=== PATIENT | male | born 1965 | race African-American/Black ===

== ENCOUNTER 2017-03-11 09:42 | Emergency (ER) | payer OTHER ==
[~2017-03-11] VITALS: Ht 182.8 cm; Wt 97.5 kg
[~2017-03-11 09:42] MED LIST: ALL-IN-ONE1 TAB PO; ASPIRIN ADULT L81 M3 PO; ASPIRIN81 M1 PO; AUGMENTIN 875 M1 TAB PO; B-1100 MG PO; CATAFLAM50 MG PO; CLARITIN10 MG PO; FLEXERIL5 MG PO; FOLIC ACID1 MG PO; Fioricet 325 MG1 TAB PO; HYDROCODONE BIT1 T11 PO; MOTRIN800 MG PO; MULTI VITAMINS1 TAB PO; MULTIPLE VITAMI1 TAB PO; NATURE'S BLEND F1 MG PO; NKHM; Orphenadrine C100 MG PO; PREDNISONE20 M1 PO; PREDNISONE20 MG PO; ROBAXIN750 MG PO; TESSALON PERLE100 M1 PO; TYLENOL W/CODEI1 TA2 PO; TYLENOL WITH CO1 TAB PO; TYLENOL325 M2 PO; VICODIN 5/500 505 MG PO; WYMOX500 MG PO; ZITHROMAX Z PA250 MG PO; ZOLOFT100 MG PO
[2017-03-11] MEDS ORDERED: MEDROL DOSEPAK4 MG PO (10:01)
[2017-03-11] MEDS ORDERED: PEPCID20 MG PO (10:01)
== END 2017-03-11 10:50 | disposition home or self-care (01) ==
LOC: ED 09:42
DX: L23.9 Allergic contact dermatitis, unspecified cause (principal); M47.896 Other spondylosis, lumbar region

== ENCOUNTER → 2017-04-27 | Outpatient (CLI) | payer OTHER ==
[~2017-04-27] MED LIST changes: +MEDROL DOSEPAK4 MG PO; +PEPCID20 MG PO
== END | disposition home or self-care (01) ==
LOC: US 10:13
DX: M54.5 Low back pain (principal)

== ENCOUNTER 2017-07-08 18:28 | Emergency (ER) | payer OTHER ==
[~2017-07-08] VITALS: Ht 182.8 cm; Wt 97.5 kg
[2017-07-08 19:08] LABS: BASO % 0.4 % (0.0-1.0); EOS # 0.2 10*3/uL (0.0-0.4); HEMATOCRIT 41.6 % (42.0-52.0); HEMOGLOBIN 14.3 g/dl (14.0-18.0); LYMPH # 1.7 10*3/uL (1.3-4.4); LYMPH % 33.1 % (27.0-41.0); MEAN CELL VOLUME 88.9 fl (80.0-94.0); MEAN CORPUSCULAR HGB 30.6 pg (27.0-31.0); MEAN CORPUSCULAR HGB CONC 34.4 g/dl (33.0-37.0); MONO # 0.5 10*3/uL (0.1-1.0); MONO % 9.9 % (3.0-9.0); NEUT # 2.6 10*3/uL (2.3-7.9); PLATELET COUNT AUTOMATED 200 10*3/uL (130-400); RED BLOOD COUNT 4.68 10*6/uL (4.50-5.90); RED CELL DISTRI WIDTH 12.4 % (0-14.5)
[2017-07-08 19:23] LABS: ALKALINE PHOSPHATASE 53 U/L (45-117); BUN 12 mg/dl (7-24); CHLORIDE 105 mmol/L (98-107); POTASSIUM 3.5 mmol/L (3.5-5.1); SGOT/AST 31 IU/L (3-35); SGPT/ALT 33 U/L (12-78); SODIUM 142 mmol/L (136-145); TOTAL PROTEIN 7.3 gm/dL (6.4-8.2)
[2017-07-08] MEDS ORDERED: ZOFRAN ODT4 MG SL (19:27)
== END 2017-07-08 19:28 | disposition home or self-care (01) ==
LOC: ED 18:28
PROVIDERS: Registered Nurse
DX: B34.9 Viral infection, unspecified (principal)

== ENCOUNTER 2017-09-10 18:49 | Emergency (ER) | payer OTHER ==
[~2017-09-10] VITALS: Ht 182.8 cm; Wt 97.5 kg
[~2017-09-10 18:49] MED LIST changes: +ZOFRAN ODT4 MG SL
[2017-09-10 19:34] LABS: BILIRUBIN NEGATIVE (NEGATIVE); BLOOD NEGATIVE (NEGATIVE); CLARITY CLEAR (CLEAR); COLOR YELLOW (YELLOW); GLUCOSE NEGATIVE (NEGATIVE); KETONE NEGATIVE (NEGATIVE); LEUKO ESTERASE NEGATIVE (NEGATIVE); NITRITE NEGATIVE (NEGATIVE); PH 5.5 (5.0-9.0); SPECIFIC GRAVITY 1.025 (1.005-1.030); UROBILINOGEN 0.2 E.U./dl (0.2-1.0)
[2017-09-10 19:50] LABS: BACTERIA TRACE; MUCOUS 1+; RBC 0-2 rbc/hpf (0-2)
== END 2017-09-10 20:16 | disposition home or self-care (01) ==
LOC: ED 18:49
PROVIDERS: Physician Assistant
DX: Z20.2 Contact with and (suspected) exposure to infections with a predominantly sexual mode of transmission (principal); R36.9 Urethral discharge, unspecified; Z79.899 Other long term (current) drug therapy

== ENCOUNTER 2018-02-20 08:01 | Inpatient (IN) | payer OTHER ==
[~2018-02-20] VITALS: Ht 182.8 cm; Wt 94.9 kg
--- NOTE | ~2018-02-20 | EKG ---
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
--- NOTE | ~2018-02-20 | EKG ---
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
[2018-02-20 08:03] VITALS: BP 121/89
[2018-02-20 08:19] LABS: BASO % 0.2 % (0.0-1.0); EOS # 0.4 10*3/uL (0.0-0.4); EOS % 6.3 % (1.0-4.0); HEMATOCRIT 45.1 % (42.0-52.0); HEMOGLOBIN 15.5 g/dl (14.0-18.0); LYMPH # 1.3 10*3/uL (1.3-4.4); LYMPH % 19.1 % (27.0-41.0); MEAN CELL VOLUME 87.4 fl (80.0-94.0); MEAN CORPUSCULAR HGB CONC 34.4 g/dl (33.0-37.0); MEAN PLATELET VOLUME 9.1 fl (9.6-12.3); MONO # 0.5 10*3/uL (0.1-1.0); MONO % 8.1 % (3.0-9.0); NEUT # 4.3 10*3/uL (2.3-7.9); PLATELET COUNT AUTOMATED 211 10*3/uL (130-400); RED BLOOD COUNT 5.16 10*6/uL (4.50-5.90); WHITE BLOOD COUNT 6.5 10*3/uL (4.8-10.8)
[2018-02-20 08:28] LABS: ACT PARTIAL THROMBO TIME 24.4 SECONDS (20.8-31.5); INTERNATIONAL NORM RATIO 0.9 (2.0-3.5)
[2018-02-20 08:36] LABS: ALBUMIN 3.9 gm/dl (3.1-4.5); ALKALINE PHOSPHATASE 59 U/L (45-117); BUN 15 mg/dl (7-24); CHLORIDE 107 mmol/L (98-107); CREATININE 0.96 mg/dL (0.70-1.30); POTASSIUM 3.9 mmol/L (3.5-5.1); SGOT/AST 28 IU/L (3-35); SGPT/ALT 34 U/L (12-78); SODIUM 139 mmol/L (136-145); TOTAL PROTEIN 7.4 gm/dL (6.4-8.2)
[2018-02-20 08:38] LABS: TROPONIN I < 0.015 ng/ml (<0.045)
[2018-02-20 08:57] VITALS: BP 119/82
[2018-02-20 09:30] VITALS: BP 123/80
[2018-02-20 12:00] VITALS: BP 132/73
== END 2018-02-20 14:51 | disposition left against medical advice (07) | DRG 392 ==
LOC: ED 08:01 → EDHOLD 08:55 → 4E 09:18
PROVIDERS: Emergency Medicine
DX: K21.9 Gastro-esophageal reflux disease without esophagitis (principal); D72.1 Eosinophilia; K92.1 Melena; R00.1 Bradycardia, unspecified; R73.9 Hyperglycemia, unspecified; D72.810 Lymphocytopenia; M47.896 Other spondylosis, lumbar region; R19.7 Diarrhea, unspecified; E80.6 Other disorders of bilirubin metabolism; E66.3 Overweight; M47.816 Spondylosis without myelopathy or radiculopathy, lumbar region; Z53.21 Procedure and treatment not carried out due to patient leaving prior to being seen by health care provider; R07.89 Other chest pain; Z82.49 Family history of ischemic heart disease and other diseases of the circulatory system; Z79.899 Other long term (current) drug therapy; Z83.3 Family history of diabetes mellitus; Z83.6 Family history of other diseases of the respiratory system; Z84.89 Family history of other specified conditions; Z68.28 Body mass index [BMI] 28.0-28.9, adult

== ENCOUNTER 2018-03-13 16:42 | Emergency (ER) | payer OTHER ==
[~2018-03-13] VITALS: Ht 182.8 cm; Wt 97.5 kg
[2018-03-13 17:26] LABS: BILIRUBIN NEGATIVE (NEGATIVE); BLOOD NEGATIVE (NEGATIVE); CLARITY CLEAR (CLEAR); COLOR YELLOW (YELLOW); GLUCOSE NEGATIVE (NEGATIVE); KETONE NEGATIVE (NEGATIVE); LEUKO ESTERASE NEGATIVE (NEGATIVE); NITRITE NEGATIVE (NEGATIVE); PH 6.5 (5.0-9.0)
[2018-03-13 17:32] LABS: BACTERIA 1+; EPITHELIAL CELLS 0-2; MUCOUS TRACE; RBC 0-2 rbc/hpf (0-2); WBC 0-2 wbc/hpf (0-5)
[2018-03-13] MEDS ORDERED: ROBAXIN500 M1 PO (17:39)
[2018-03-13] MEDS ORDERED: ANAPROX DS550 MG PO (17:39)
== END 2018-03-13 19:21 | disposition left against medical advice (07) ==
LOC: ED 16:42
PROVIDERS: Physician Assistant
DX: M54.5 Low back pain (principal); M54.6 Pain in thoracic spine

== ENCOUNTER 2018-04-08 07:00 | Emergency (ER) | payer OTHER ==
[~2018-04-08] VITALS: Ht 182.8 cm; Wt 97.1 kg
[~2018-04-08 07:00] MED LIST changes: +ANAPROX DS550 MG PO; +ROBAXIN500 M1 PO
[2018-04-08 07:34] LABS: BASO % 0.4 % (0.0-1.0); EOS # 0.3 10*3/uL (0.0-0.4); EOS % 6.2 % (1.0-4.0); HEMATOCRIT 43.7 % (42.0-52.0); HEMOGLOBIN 14.8 g/dl (14.0-18.0); LYMPH # 1.5 10*3/uL (1.3-4.4); LYMPH % 31.3 % (27.0-41.0); MEAN CELL VOLUME 88.1 fl (80.0-94.0); MEAN CORPUSCULAR HGB 29.8 pg (27.0-31.0); MEAN CORPUSCULAR HGB CONC 33.9 g/dl (33.0-37.0); MEAN PLATELET VOLUME 9.3 fl (9.6-12.3); MONO # 0.4 10*3/uL (0.1-1.0); MONO % 8.3 % (3.0-9.0); NEUT # 2.5 10*3/uL (2.3-7.9); NEUT % 53.4 % (47.0-73.0); PLATELET COUNT AUTOMATED 188 10*3/uL (130-400); RED BLOOD COUNT 4.96 10*6/uL (4.50-5.90); RED CELL DISTRI WIDTH 12.4 % (0-14.5); WHITE BLOOD COUNT 4.7 10*3/uL (4.8-10.8)
[2018-04-08 07:43] LABS: ACT PARTIAL THROMBO TIME 23.9 SECONDS (20.8-31.5)
[2018-04-08 07:49] LABS: ALBUMIN 3.8 gm/dl (3.1-4.5); ALKALINE PHOSPHATASE 48 U/L (45-117); BUN 9 mg/dl (7-24); CHLORIDE 106 mmol/L (98-107); CREATININE 0.86 mg/dL (0.70-1.30); POTASSIUM 3.6 mmol/L (3.5-5.1); SGOT/AST 37 IU/L (3-35); SGPT/ALT 43 U/L (12-78); SODIUM 140 mmol/L (136-145); TOTAL PROTEIN 7.4 gm/dL (6.4-8.2)
[2018-06-01] MEDS ORDERED: KEFLEX500 M1 PO (09:49)
[2018-06-01] MEDS ORDERED: NAPROSYN500 MG PO (09:49)
[2018-06-01] MEDS ORDERED: ZOFRAN4 MG PO (09:49)
[2018-06-01] MEDS ORDERED: SEPTDS PO (09:49)
== END 2018-04-08 11:49 | disposition home or self-care (01) ==
LOC: ED 07:00
PROVIDERS: Emergency Medicine
DX: K92.2 Gastrointestinal hemorrhage, unspecified (principal); M47.896 Other spondylosis, lumbar region

== ENCOUNTER → 2018-06-05 | Day surgery (SDC) | payer OTHER ==
[~2018-06-05] VITALS: Ht 185.9 cm; Wt 90.7 kg
[~2018-06-05] MED LIST changes: +KEFLEX500 M1 PO; +NAPROSYN500 MG PO; +SEPTDS PO; +ZOFRAN4 MG PO
--- NOTE | ~2018-06-05 | O ---
[place], [place] OPERATIVE NOTE [facility]: [id number] UNIT #: [id number] ROOM: DOCTOR: ALKESHA PÉREZ MD BIRTHDATE: [birth year] DOS: 06/05/2018 GASTROENDOSCOPIC REPORT IDENTIFICATION: This is a 52-year-old patient who is presented with dyspepsia as well as rectal bleed intermittently. The patient with symptomatology of this reflux as well. Contributing factors are chewing tobacco as well as use of naproxen 500 mg b.i.d. ALLERGIES: To no known medications. FAMILY HISTORY: Noncontributory. PAST SURGICAL HISTORY: Unremarkable. PAST MEDICAL HISTORY: Otherwise nil. He is only complaining of unintentional weight loss of 10 pounds and as well he is a caffeine consumer. SOCIAL HISTORY: Chewing tobacco and social alcohol consumer. PROCEDURE: Today's procedure part of investigation is panendoscopy and colonoscopy. PREMEDICATION: Propofol. SCOPE: Olympus forward-viewing gastroscope Q10 video. REPORT: After putting the patient in left lateral position and application of lubricant to the scope, the scope was introduced, thereafter under direct visualization advanced through the length of esophagus without difficulty. Distal esophagitis secondary to reflux was identified. A small hiatal hernia of 1.5 cm was noticed. Gastritis was seen. Antral biopsy was obtained for H. pylori. Duodenal bulb, second and third part carefully examined. Mild duodenitis was seen. Scope was withdrawn back. GI reflexion of the scope reveals cardia to be benign. Air was suctioned out. Photographic series obtained. The patient was extubated, tolerated the procedure well. IMPRESSION: 1. Gastritis. 2. A small hiatal hernia. 3. Distal esophagitis secondary to reflux. PLAN: Omeprazole 40 mg one daily. The patient was advised to abstain from chewing tobacco and abstain from naproxen intake routinely. Antireflux with elevation of the head of the bed 6 inch all time. Gaviscon as antacid of choice. Abstaining from excessive caffeinated beverages as well as alcohol. PLAN AND DISCUSSION: I am going to proceed with colonoscopy for rectal bleed as well today. [place], [place] OPERATIVE NOTE NAME: BOBBI LOPEZ UNIT #: [id number] ROOM: DOCTOR: ELISA SHORE,NASROLLAH BIRTHDATE: [birth year] PROCEDURE #2: Today's procedure part of investigation of rectal bleed is colonoscopy. PREMEDICATION: Propofol. SCOPE: Olympus forward-viewing colonoscope 10L video. REPORT: After putting the patient in left lateral position and application of lubricant to the scope, the scope was introduced, thereafter under direct visualization advanced through the length of colon without difficulty. Colon mucosa and vascularity carefully examined. Base of the cecum was explored. Appendiceal orifice was identified. Ileocecal valve was defined. The patient had a large volume of retained liquid stool in the colon. This was as much as possible suctioned out and washed and no mucosal abnormality was seen. There was no evidence of ulceration, no polypoid lesion, and no acute hemorrhoid identified. GI reflection of the scope in the rectum shows benign internal rectal anatomy. Air was suctioned out. The patient was extubated, tolerated the procedure well. IMPRESSION: Normal colonoscopic examination. PLAN AND DISCUSSION: The rectal bleeding intermittently could be mucosal bleed from the rectal skin damage or secondary to mechanical movement of the bowel and it should be a very superficial concern. We are going to proceed with upper GI management and avoidance of excessive nonsteroidal anti-inflammatory, also may help correction of coagulation and less bleeding per rectum. In the interim, Preparation-H suppositories p.r.n. suggested. There is no need for prescription medication for rectal management. Thank you very much indeed. LAKESHA PÉREZ MD CM:OPRECORD:OPERATIVE NOTE [id number] MATT PÉREZ MD 06/05/18 1101 interface
[2018-06-05 09:18] VITALS: BP 126/83
[2018-06-05 10:09] VITALS: BP 104/76
[2018-06-05 10:24] VITALS: BP 129/91
== END | disposition home or self-care (01) ==
LOC: SDC 05-31 09:30
DX: K62.5 Hemorrhage of anus and rectum (principal); K29.50 Unspecified chronic gastritis without bleeding; K21.0 Gastro-esophageal reflux disease with esophagitis; K44.9 Diaphragmatic hernia without obstruction or gangrene; G89.29 Other chronic pain; F41.8 Other specified anxiety disorders; Z79.899 Other long term (current) drug therapy; Z86.73 Personal history of transient ischemic attack (TIA), and cerebral infarction without residual deficits; Z87.891 Personal history of nicotine dependence

== ENCOUNTER 2018-08-06 18:55 | Emergency (ER) | payer SELFPAY ==
[~2018-08-06] VITALS: Wt 86.2 kg
[~2018-08-06 18:55] MED LIST changes: +AVPAK AZITHROM250 MG PO
[2018-08-06] MEDS ORDERED: PREDNISONE20 M1 PO (20:03)
[2018-08-06] MEDS ORDERED: NAPROSYN500 MG PO (20:03)
[2018-08-06] MEDS ORDERED: TESSALON PERLE100 M1 PO (20:03)
== END 2018-08-06 20:31 | disposition home or self-care (01) ==
LOC: ED 18:55
DX: J20.9 Acute bronchitis, unspecified (principal)

== ENCOUNTER 2020-09-08 13:54 | Observation (INO) | payer OTHER ==
[~2020-09-08] VITALS: Ht 182.9 cm; Wt 104.5 kg
[2020-09-08 14:07] VITALS: BP 139/90
[2020-09-08 14:28] LABS: BASO % 0.3 % (0.0-1.0); EOS # 0.2 10*3/uL (0.0-0.4); EOS % 3.3 % (1.0-4.0); HEMATOCRIT 46.2 % (42.0-52.0); LYMPH # 1.9 10*3/uL (1.3-4.4); LYMPH % 30.6 % (27.0-41.0); MEAN CELL VOLUME 87.5 fl (80.0-94.0); MEAN CORPUSCULAR HGB 29.4 pg (27.0-31.0); MEAN CORPUSCULAR HGB CONC 33.5 g/dl (33.0-37.0); MEAN PLATELET VOLUME 9.3 fl (9.6-12.3); MONO # 0.5 10*3/uL (0.1-1.0); MONO % 7.1 % (3.0-9.0); NEUT # 3.7 10*3/uL (2.3-7.9); NEUT % 58.1 % (47.0-73.0); PLATELET COUNT AUTOMATED 250 10*3/uL (130-400); RED BLOOD COUNT 5.28 10*6/uL (4.50-5.90); RED CELL DISTRI WIDTH 12.7 % (0-14.5); WHITE BLOOD COUNT 6.3 10*3/uL (4.8-10.8)
[2020-09-08 14:40] LABS: ACT PARTIAL THROMBO TIME 28.2 SECONDS (20.0-32.1)
[2020-09-08 14:44] LABS: LIPASE 74 U/L (73-393)
[2020-09-08 14:45] LABS: ALBUMIN 3.6 gm/dl (3.1-4.5); BUN 9 mg/dl (7-24); CHLORIDE 105 mmol/L (98-107); CREATININE 0.98 mg/dL (0.70-1.30); POTASSIUM 3.6 mmol/L (3.5-5.1); SGOT/AST 30 IU/L (3-35); SGPT/ALT 40 U/L (12-78); SODIUM 137 mmol/L (136-145); TOTAL PROTEIN 7.4 gm/dL (6.4-8.2)
[2020-09-08 14:47] LABS: ALKALINE PHOSPHATASE 71 U/L (45-117); TROPONIN I < 0.015 ng/ml (<0.045)
[2020-09-08 16:00] VITALS: BP 122/90
[2020-09-08 20:00] VITALS: BP 122/90
[2020-09-09] VITALS: BP 112/72
[2020-09-09 06:14] LABS: BASO % 0.4 % (0.0-1.0); EOS # 0.3 10*3/uL (0.0-0.4); EOS % 3.4 % (1.0-4.0); HEMATOCRIT 45.2 % (42.0-52.0); LYMPH # 2.5 10*3/uL (1.3-4.4); LYMPH % 32.3 % (27.0-41.0); MEAN CELL VOLUME 89.2 fl (80.0-94.0); MEAN CORPUSCULAR HGB CONC 32.5 g/dl (33.0-37.0); MEAN PLATELET VOLUME 9.3 fl (9.6-12.3); MONO # 0.5 10*3/uL (0.1-1.0); MONO % 6.5 % (3.0-9.0); NEUT # 4.4 10*3/uL (2.3-7.9); NEUT % 56.6 % (47.0-73.0); PLATELET COUNT AUTOMATED 223 10*3/uL (130-400); RED BLOOD COUNT 5.07 10*6/uL (4.50-5.90); RED CELL DISTRI WIDTH 12.7 % (0-14.5); WHITE BLOOD COUNT 7.8 10*3/uL (4.8-10.8)
[2020-09-09 06:28] LABS: ALBUMIN 3.2 gm/dl (3.1-4.5); BUN 18 mg/dl (7-24); CHLORIDE 104 mmol/L (98-107); CHOLESTEROL 167 mg/dL (<200); CREATININE 1.09 mg/dL (0.70-1.30); POTASSIUM 3.8 mmol/L (3.5-5.1); SGOT/AST 19 IU/L (3-35); SGPT/ALT 33 U/L (12-78); SODIUM 138 mmol/L (136-145); TRIGLYCERIDES 68 mg/dl (<150); VLDL CHOLESTEROL 14 mg/dL (6-40)
[2020-09-09 06:35] LABS: ALKALINE PHOSPHATASE 61 U/L (45-117); FREE T4 1.08 ng/dl (0.76-1.46); HDL CHOLESTEROL 53 mg/dl (40-60); LDL CHOLESTEROL 100 mg/dL (9-159); TOTAL PROTEIN 6.6 gm/dL (6.4-8.2)
[2020-09-09 09:00] VITALS: BP 125/81
[2020-09-09 12:00] VITALS: BP 132/78
[2020-09-09] MEDS ORDERED: PROTONIX40 MG PO ×2 (16:46)
[2020-09-09] MEDS ORDERED: LEVOFLOXACIN500 MG PO ×2 (16:46)
[2020-11-08] MEDS ORDERED: COLACE100 MG PO (09:24)
[2020-11-08] MEDS ORDERED: ZOFRAN4 MG PO (09:24)
[2020-11-08] MEDS ORDERED: PERCOCET 5-3251 EACH PO (09:24)
== END 2020-09-09 17:18 | disposition home or self-care (01) ==
LOC: ED 13:54 → EDHOLD 17:35 → 5E 19:20
PROVIDERS: Emergency Medicine; Student in an Organized Health Care Education/Training Program; ADMIT Internal Medicine; ATTEND Internal Medicine
DX: R07.89 Other chest pain (principal); R51.9 Headache, unspecified; H92.02 Otalgia, left ear; R42 Dizziness and giddiness; R91.8 Other nonspecific abnormal finding of lung field; R73.9 Hyperglycemia, unspecified; E66.3 Overweight; M47.9 Spondylosis, unspecified; Z87.891 Personal history of nicotine dependence

== ENCOUNTER → 2020-11-03 | Outpatient (CLI) | payer OTHER ==
[~2020-11-03] MED LIST changes: +COLACE100 MG PO; +LEVOFLOXACIN500 MG PO; +PERCOCET 5-3251 EACH PO; +PROTONIX40 MG PO
== END | disposition home or self-care (01) ==
LOC: COVID19 13:52
PROVIDERS: ATTEND Surgery
DX: Z01.818 Encounter for other preprocedural examination (principal); Z20.822 Contact with and (suspected) exposure to COVID-19

== ENCOUNTER → 2020-11-08 | Day surgery (SDC) | payer OTHER ==
[2020-11-05 13:13] VITALS: BP 128/95
[~2020-11-08] VITALS: Ht 182.8 cm; Wt 99.8 kg
[2020-11-08 08:04] VITALS: BP 119/77
[2020-11-08 09:37] VITALS: BP 146/81
[2020-11-08 09:52] VITALS: BP 148/74
[2020-11-08 10:07] VITALS: BP 152/75
[2020-11-08 10:22] VITALS: BP 128/77
[2020-11-08 10:37] VITALS: BP 127/82
== END ==
LOC: SDC 09-29 13:15
PROVIDERS: ATTEND Surgery
DX: K43.0 Incisional hernia with obstruction, without gangrene (principal)

== ENCOUNTER → 2021-08-24 | Outpatient (CLI) | payer OTHER ==
[2021-08-24 15:56] LABS: BASO % 0.5 % (0.0-1.0); EOS # 0.1 10*3/uL (0.0-0.4); EOS % 1.8 % (1.0-4.0); HEMATOCRIT 47.4 % (42.0-52.0); LYMPH # 1.6 10*3/uL (1.3-4.4); LYMPH % 23.6 % (27.0-41.0); MEAN CELL VOLUME 86.7 fl (80.0-94.0); MEAN CORPUSCULAR HGB 29.3 pg (27.0-31.0); MEAN CORPUSCULAR HGB CONC 33.8 g/dl (33.0-37.0); MEAN PLATELET VOLUME 9.2 fl (9.6-12.3); MONO # 0.4 10*3/uL (0.1-1.0); MONO % 6.5 % (3.0-9.0); NEUT # 4.4 10*3/uL (2.3-7.9); NEUT % 66.4 % (47.0-73.0); PLATELET COUNT AUTOMATED 229 10*3/uL (130-400); RED BLOOD COUNT 5.47 10*6/uL (4.50-5.90); RED CELL DISTRI WIDTH 12.3 % (0-14.5); WHITE BLOOD COUNT 6.6 10*3/uL (4.8-10.8)
[2021-08-24 16:21] LABS: ALBUMIN 3.7 gm/dl (3.1-4.5); ALKALINE PHOSPHATASE 73 U/L (45-117); BUN 11 mg/dl (7-24); CHLORIDE 106 mmol/L (98-107); CREATININE 1.01 mg/dL (0.70-1.30); POTASSIUM 3.6 mmol/L (3.5-5.1); SGOT/AST 20 IU/L (3-35); SGPT/ALT 38 U/L (12-78); SODIUM 140 mmol/L (136-145); TOTAL PROTEIN 7.8 gm/dL (6.4-8.2)
== END ==
LOC: LAB 15:35
PROVIDERS: ATTEND Internal Medicine Nephrology
DX: R73.03 Prediabetes (principal); G43.109 Migraine with aura, not intractable, without status migrainosus; N52.9 Male erectile dysfunction, unspecified

== ENCOUNTER 2022-04-18 09:30 | Emergency (ER) | payer OTHER | END 2022-04-18 11:30 | disposition home or self-care (01) | LOC: ED 09:30 | DX: S89.91XA Unspecified injury of right lower leg, initial encounter (principal); K21.9 Gastro-esophageal reflux disease without esophagitis; Z87.891 Personal history of nicotine dependence; X58.XXXA Exposure to other specified factors, initial encounter; Y93.89 Activity, other specified; Y92.89 Other specified places as the place of occurrence of the external cause; Y99.8 Other external cause status ==